=== PATIENT | male | born 1995 | race Hispanic/Latino ===

== ENCOUNTER 2025-08-09 05:34 | Emergency (ER) | payer SELFPAY ==
[2025-08-09] MEDS ORDERED: Ondansetron PF 4 MG/2 ML Vial ONE (05:59)
[2025-08-09 06:17] LABS: #Basophils 0.2 thou/uL (0.0-0.2); #Eosinophils 0.3 thou/uL (0.0-0.7); #Lymphocytes 1.2 thou/uL (1.20-3.40); #Monocytes 0.6 thou/uL (0.11-0.59); #Neutrophils 5.3 thou/uL (1.40-6.50); %Basophils 2.2 % (0.0-1.0); %Eosinophils 4.4 % (0.0-10.0); %Lymphocytes 15.3 % (21.0-51.0); %Monocytes 7.7 % (0.0-10.0); %Neutrophils 70.3 % (42.0-75.0); Hematocrit 48.9 % (42.0-52.0); Hemoglobin 15.4 g/dL (14.0-18.0); Mean Corpuscular Hemoglobin 26.1 pg (27.0-31.0); Mean Corpuscular Volume 82.6 fl (78.0-98.0); Platelet Count 341 10x3/uL (130-400); Red Blood Cell (RBC) Count 5.91 mill/uL (4.70-6.10); White Blood Cell (WBC) Count 7.6 10x3/uL (4.8-10.8)
[2025-08-09 06:26] LABS: Anion Gap 16 mmol/L (10-20); BUN (Urea Nitrogen) 16 mg/dL (8.9-20.6); Calc. Creatinine Clearance 0 mL/min (70-130); Carbon Dioxide 24 mmol/L (22-29); Chloride 102 mmol/L (98-107); Potassium 3.7 mmol/L (3.5-5.1); Sodium 138 mmol/L (136-145)
[2025-08-09 06:27] LABS: ALT (SGPT) 58 U/L (Less than 45); AST (SGOT) 35 U/L (11-34); Albumin 4.5 g/dL (3.1-4.5); Alkaline Phosphatase 110 U/L (40-110); Bilirubin, Total 1.2 mg/dL (0.3-1.2); Calcium 9.6 mg/dL (7.8-10.44); Globulin 3.5 g/dL (2.4-3.5); Glucose 109 mg/dL (70-105); Lipase 210 U/L (8-78)
[2025-08-09] MEDS ORDERED: Ketorolac Tromethamine 30 MG (1 mL) VIAL ONE (08:31)
== END 2025-08-09 08:42 | disposition home or self-care (01) ==
LOC: NAV ERS 05:34
DX: R10.11 Right upper quadrant pain (principal)
CPT/HCPCS: 80053; 83690; 85025; 96374; 96375; J1885; J2270; J2405; J7030